=== PATIENT | male | born 1945 | race Caucasian/White ===

== ENCOUNTER → 2019-03-21 | Outpatient (CLI) | payer OTHER ==
--- NOTE | 2019-03-21 15:29 | 2DMMODE ---
[facility] [employer] [address] 2 D/M-MODE ECHOCARDIOGRAM Name: TAE ESTES Room #: [facility]#: [id number] ������������� Admission: 03/21/19 ������������� Attend Phys: Tang Banks MD Discharge: ��� ������������� ��� Date of : 45 Date of Service: 03/21/19 1529 �� Report #: [id number] �������� ��������������������������������������������[id number] THIS REPORT FOR: //name// APPROVED REPORT Study performed: 03/21/2019 13:51:20 EXAM: Comprehensive 2D, Doppler, and color-flow Echocardiogram Patient Location: Out-Patient Status: routine BSA: 2.07 HR: 67 bpm BP: 100/58 mmHg Rhythm: Frequent PVCs Other Information Study Quality: Good Indications Ischemic heart disease. Life vest. Hx: CAD, stent. 2D Dimensions RVDd: 37.66 mm IVSd: 10.14 (7-11mm) LVOT Diam: 22.23 (18-24mm) LVDd: 60.84 mm PWd: 9.30 (7-11mm) Ascending Ao: 36.66 (22-36mm) LVDs: 51.57 (25-40mm) Aortic Root: 34.70 mm Volumes Left Atrial Volume (Systole) Single Plane 4CH: 76.28 mL Single Plane 2CH: 85.69 mL LA ESV Index: 42.00 mL/m2 Aortic Valve AoV Peak Lex.: 1.59 m/s AO Peak Gr.: 10.33 mmHg LVOT Max P.20 mmHg LVOT Max V: 1.12 m/s RICARDO Vmax: 2.73 cm2 Mitral Valve E/A Ratio: 0.6 MV Decel. Time: 267.52 ms MV E Max Lex.: 0.46 m/s [facility] [address] [place] [address] 2 D/M-MODE ECHOCARDIOGRAM Name: TAE ESTES Room #: [facility]#: [id number] ������������� Admission: 03/21/19 ������������� Attend Phys: Tang Banks MD Discharge: ��� ������������� ��� Date of : 45 Date of Service: 03/21/19 1529 �� Report #: [id number] �������� ��������������������������������������������[id number] MV A Lex.: 0.73 m/s MV PHT: 77.58 ms IVRT: 89.97 ms Pulmonary Valve PV Peak Lex.: 0.82 m/s PV Peak Gr.: 2.75 mmHg Pulmonary Vein P Vein S: 0.69 m/s P Vein D: 0.37 m/s P Vein S/D Ratio: 1.86 Tricuspid Valve TR Peak Lex.: 2.41 m/s RAP Estimate: 5.00 mmHg TR Peak Gr.: 23.50 mmHg PA Pressure: 29.00 mmHg Left Ventricle Left ventricle is mild to moderately dilated. There is normal left ventricular wall thickness. Left ventricular systolic function is moderate to severely decreased. LVEF is 30-35%. Mild diastolic dysfunction is present (impaired relaxation pattern). Right Ventricle The right ventricle is normal size. The right ventricular systolic function is normal. Atria Left atrium is moderately dilated. Right atrium is at the upper limits of normal. Aortic Valve The aortic valve is normal in structure. Trace aortic regurgitation. There is no aortic valvular stenosis. Mitral Valve The mitral valve is normal in structure. Moderate mitral regurgitation. Tricuspid Valve The tricuspid valve is normal in structure. Mild to moderate tricuspid regurgitation. Estimated PAP is 30mmHg. Pulmonic Valve The pulmonary valve is normal in structure. Mild pulmonic regurgitation. [facility] [address] [place] [address] 2 D/M-MODE ECHOCARDIOGRAM Name: TAE ESTES Room #: [facility]#: [id number] ������������� Admission: 03/21/19 ������������� Attend Phys: Tang Banks MD Discharge: ��� ������������� ��� Date of : 45 Date of Service: 03/21/19 1529 �� Report #: [id number] �������� ��������������������������������������������[id number] [employer] The aortic root is normal in size. The ascending aorta is normal in size. IVC is normal in size and collapses >50% with inspiration. Pericardium There is no pericardial effusion. <Conclusion> Left ventricle is mild to moderately dilated. Left ventricular systolic function is moderate to severely decreased. LVEF is 30-35%. Mild diastolic dysfunction is present (impaired relaxation pattern). The right ventricle is normal size. Left atrium is moderately dilated. Trace aortic regurgitation. Moderate mitral regurgitation. Mild to moderate tricuspid regurgitation. Estimated PAP is 30mmHg. The aortic root is normal in size. There is no pericardial effusion. ��������������������������������������������� <ELECTRONICALLY SIGNED> ���������������������������������������� By: Luke Cornejo MD, [facility] ��������������������������������������������� 03/21/19 1529 1529 1529 Luke Cornejo MD, FACC /INF
== END ==
LOC: CV 13:23
DX: I08.8 Other rheumatic multiple valve diseases (principal); I25.9 Chronic ischemic heart disease, unspecified; Z95.5 Presence of coronary angioplasty implant and graft